=== PATIENT | female | born 1965 | race Caucasian/White ===

== ENCOUNTER 2022-04-01 16:38 | Emergency (ER) | payer MEDICAID, SELFPAY ==
[2022-04-01 16:55] VITALS: BP 158/117; PULSE 92; RESP 22; O2SAT 91; BMI 49.7
--- NOTE | 2022-04-01 17:16 | ECG_ITS ---
[facility] Test Date: 2022-04-01 Pat Name: Dennis Quintero Department: Room: Gender: Female [employer] Controller: : [id number] Requested By: Otoniel Monzon Order Number: [id number] Javi MD: Donaldo Riggs M.D. Measurements Intervals [place] Rate: 84 P: 60 NH: 201 QRS: -39 QRSD: 102 T: 93 QT: 395 QTc: 469 Interpretive Statements SINUS RHYTHM POSSIBLE LEFT ATRIAL ENLARGEMENT [-0.1mV P-WAVE IN V1/V2] LEFT AXIS DEVIATION [QRS AXIS < -30] SEPTAL MYOCARDIAL INFARCTION , PROBABLY OLD [40+ ms Q WAVE IN V1/V2] MODERATE T-WAVE ABNORMALITY, CONSIDER LATERAL ISCHEMIA [-0.1+ mV T-WAVE IN I/aVL/V5/V6] No previous ECG available for comparison Electronically Signed On 04-02-2022 8:04:22 CDT by Donaldo Riggs M.D. [id number]
--- NOTE | 2022-04-01 17:16 | XRR_ITS ---
PROCEDURE INFORMATION: Exam: XR Chest Exam date and time: 04/01/2022 5:41 PM Age: 56 years old Clinical indication: Shortness of breath; Additional info: SOB TECHNIQUE: Imaging protocol: XR of the chest. Views: 1 view. COMPARISON: No relevant prior studies available. FINDINGS: Lungs: Right hilar to lower lobe atelectasis versus infiltrate. Pleural spaces: Unremarkable. No pleural effusion. No pneumothorax. Heart/Mediastinum: Cardiomegaly. Bones/joints: Unremarkable. XR/XR chest 1V portable [id number] IMPRESSION: 1. Cardiomegaly. 2. Right hilar to lower lobe atelectasis versus infiltrate.
--- NOTE | 2022-04-01 17:17 | ED_ITS ---
HPI - Weakness General: Chief complaint: Weakness Stated complaint: WEAKNESS; SOB Time Seen by Provider: 04/01/22 16:44 Source: patient and EMS Mode of arrival: EMS Limitations: no limitations History of Present Illness: History is obtained from the patient in a limited fashion as well as EMS. This patient has history of COPD. She also has a history of diabetes. She apparently is moved here from [place] has been spending time with family. She is not received care at this location. She was transported because she is allegedly have been more short of breath, claims to be out of much of her medications to include her inhalation therapy equipment etc. and is felt weak. She denies any known fevers or chills. She denies any nausea vomiting or diarrhea. She currently denies chest pain. She states she is immunized against COVID-19 and has not had COVID in the last 2 years. MD Complaint: generalized weakness Associated symptoms: Reports short of breath; Denies chest pain, chills, dysuria, fever(s), headache(s), nausea or vomiting Review of Systems Const: Reports: fatigue; Denies: fever(s), chills or body aches Eyes: Denies: change in vision ENMT: Denies: throat pain or odynophagia Card: Denies: chest pain, palpitations, irregular heart rhythm or edema Resp: Reports: dyspnea, non-productive cough and wheezing GI: Denies: abdominal pain, nausea or vomiting : Denies: flank pain, difficulty voiding or dysuria Musc: Reports: extremity pain (Chronic lower leg pain); Denies: neck pain, back pain or extremity swelling Skin/Breast: Denies: rash, pruritus or erythema Neuro: Denies: headache(s), numbness in extremities or weakness in extremities Endo: Denies: polyuria or polydipsia Physical Exam Narrative: EXAM NARRATIVE: Patient makes good eye contact appears to be alert and she does answer questions in appropriate fashion. Some of her answers seem to be less than forthcoming at times. Const: COMMON NORMALS: no acute distress and patient oriented x3 GENERAL APPEARANCE: cooperative NUTRITIONAL APPEARANCE: overweight HENMT: COMMON NORMALS: normocephalic, atraumatic, Normal nasal mucous membranes and turbinates present and moist oral mucous membranes HEAD & SCALP: normocephalic and atraumatic NOSE: Normal nasal mucous membranes and turbinates present Eye: COMMON NORMALS: Equal, round and reactive pupils present, EOMs intact bilaterally, conjunctivae normal and no scleral icterus CONJUNCTIVA: Yes conjunctivae normal PUPIL: Yes Equal, round and reactive pupils present Neck/C-Spine: COMMON NORMALS: full ROM, no lymphadenopathy, no JVD and No carotid bruits Chest: COMMONS NORMALS: normal inspection of the chest Resp: COMMON NORMALS: No retractions and No use of accessory muscles EFFORT & INSPECTION: Yes able to speak in complete sentences AUSCULTATION: crackles and no wheezes Cardio: COMMON NORMALS: no JVD, regular rate, regular rhythm, No murmurs present (Cardio) and Peripheral pulses 2+ throughout RATE: regular rate RHYTHM: regular rhythm PERIPHERAL PULSES: Peripheral pulses 2+ throughout GI: COMMON NORMALS: Normal to inspection, nondistended, normoactive bowel sounds present and Soft to palpation PALPATION: Yes Soft to palpation : COMMON NORMALS: Yes no CVA tenderness BLADDER/KIDNEY EXAM: Yes no CVA tenderness Back/Pelvis: COMMON NORMALS: no CVA tenderness, thoracic and lumbar spine normal to inspection, no thoracic nor lumbar tenderness and thoraco-lumbar ROM normal Extremity: COMMON NORMALS: normal to inspection, full ROM, capillary refill normal, no joint enlargement, no calf tenderness and no pedal edema Neuro: COMMON NORMALS: patient oriented x3, moves all extremities, no focal m otor deficits and no sensory deficits noted CRANIAL NERVES: Yes CN normal except as noted Psych: COMMON NORMALS: mental status grossly normal Skin: COMMON NORMALS: no rashes or lesions noted, no wounds and turgor normal GENERAL SKIN EXAM: no rashes or lesions noted and turgor normal Course Reevaluation(s): Reevaluation #1: Patient subjectively states she feels much better. She is breathing easy without any respiratory distress. Repeat auscultation reveals no wheezes and significantly decreased crackles. No other new or focal findings. I questioned her about her family members who continue to call the ED. She states that they are probably just checking on her. I did ask her that if any of them had healthcare DURABLE POWER OF DIRECTOR OF MATERIALS or proxy for her health care. She stated that they did not and that she was the responsible alliance party for all her healthcare decisions. Time: 20:57 Vital Signs: Vital signs: Vital Signs Pulse Rate 83 04/01/22 17:32 Respiratory Rate 18 04/01/22 17:32 Blood Pressure 158/117 04/01/22 16:55 Pulse Oximetry 97 04/01/22 17:32 MDM - Weakness Medical Decision Making Patient's current clinical picture is nonspecific. She does have cardiomegaly and suggestion of a possible developing infiltrate on the right lower lobe. This is consistent with her clinical picture of possible pulmonary infection. Certainly does not suggest congestive heart failure clinically. He is not having any ongoing chest pain symptoms arrhythmias etc. I think her risk of other cardiovascular etiology to her current presentation is relatively low. Most of her issues are probably related to her lack of medications. She does have an elevation of blood sugar but CO2 level is normal and she has normal mentation and she freely admits that she has not taken her metformin so I do not think any acute intervention other than restarting her metformin is appropriate at this time. She is out of her lisinopril and other meds so will will give her 30 days rx. We will go ahead and refill her medications, start her on a course of doxycycline and advised her to seek follow-up this coming week or return to the emergency department for any persistent or worsening symptoms. She acknowledged our discussion and was appreciative of care. Stable for discharge at this time. Lab Data I reviewed the patient's lab results. : 04/01/22 18:22 04/01/22 19:45 Radiology Impressions Chest X-Ray 04/01/22 17:16 IMPRESSION: 1. Cardiomegaly. 2. Right hilar to lower lobe atelectasis versus infiltrate. Laboratory Results WBC 9.7 10^3/uL (4.0-10.0) 04/01/22 18: RBC 5.99 10^6/uL (4.1-5.3) H 04/01/22 18:22 Hgb 17.6 g/dL (11.5-15.3) H 04/01/22 18: Hct 54.2 % (37.0-47.0) H 04/01/22 18: MCV 90.5 fl (81-99) 04/01/22 18:22 MCH 29.4 pg (28.0-34.0) 04/01/22 18: MCHC 32.5 g/dL (30.0-36.0) 04/01/22 18:22 RDW 13.8 % (12.1-15.1) 04/01/22 18: Plt Count 185 10^3/cmm (130-400) 04/01/22 18: MPV 11.3 fL (7.4-10.4) H 04/01/22 18: Neut % (Auto) 62.5 % 04/01/22 18: Lymph % (Auto) 30.7 % 04/01/22 18: Dickey % (Auto) 4.1 % 04/01/22 18: Eos % (Auto) 1.7 % 04/01/22 18: Baso % (Auto) 0.6 % 04/01/22: Neut # (Auto) 6.03 10^3/uL (1.8-7.7) 04/01/22: Lymph # (Auto) 3.0 10^3/uL (0.8-4.8) 04/01/22 18: Dickey # (Auto) 0.4 10^3/uL (0.2-0.9) 04/01/22 18: Eos # (Auto) 0.2 10^3/uL (0.0-0.8) 04/01/22: Baso # (Auto) 0.1 10^3/uL (0.0-0.1) 04/01/22 18: Nucleated RBC % (auto) 0 % 04/01/22 18: Nucleated RBCs # 0.0 /100WBC 04/01/22 18: Sodium 130 mmol/L (136-145) L 04/01/22 19:45 Potassium 4.0 mmol/L (3.5-5.1) 04/01/22 19:45 Chloride 91 mmol/L (98-107) L 04/01/22 19:45 Carbon Dioxide 27 mmol/L (22-29) 04/01/22 19:45 Anion Gap 16.0 (5-19) 04/01/22 19:45 BUN 9 mg/dL (6-20) 04/01/22 19:45 Creatinine 0.6 mg/dL (0.5-0.9) 04/01/22 19:45 GFR Calculation 103.0 mL/min (90-130) 04/01/22 19:45 Glucose 411 mg/dL (65-115) H 04/01/22 19:45 Calculated Osmolality 286 mOsm/kg (285-295) 04/01/22 19:45 Calcium 8.4 mg/dL (8.5-10.5) L 04/01/22 19:45 Total Bilirubin 0.4 mg/dL (0.15-1.2) 04/01/22 19:45 AST 13 U/L (0-32) 04/01/22 19:45 ALT 10 U/L (0-33) 04/01/22 19:45 Alkaline Phosphatase 85 IU/L (35-105) 04/01/22 19:45 NT-Pro-B Natriuret Pep 739 pg/mL (0-125) H 04/01/22 19:45 Total Protein 6.8 g/dL (6.6-8.7) 04/01/22 19:45 Albumin 3.9 g/dL (3.5-5.2) 04/01/22 19:45 Globulin 2.9 g/dL (1.3-4.6) 04/01/22 19:45 EKG Data EKG 1: I personally reviewed and interpreted this EKG as follows: EKG interpretation time: 21:02 Interpretation: Her EKG reveals a sinus rhythm of 84 bpm. She does have evidence of left atrial enlargement. She has normal intervals to include RI interval QTc interval. She has normal QRS duration. 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 She has poor R wave progression anterior precordial leads. She has some nonspecific ST-T wave changes in V5 and V6. No prior tracing available for comparison Discharge Plan Discharge Patient Disposition: Home Clinical Impression: Diabetes mellitus, Acute bronchitis, COPD (chronic obstructive pulmonary disease) Condition: Stable Prescriptions: New albuterol sulfate 90 mcg/actuation HFA aerosol inhaler 2 inh inhalation Q6H PRN (Reason: shortness of breath or wheezing) Qty: 8.5 0RF lisinopril 20 mg tablet 20 mg PO DAILY Qty: 30 0RF trazodone 50 mg tablet 50 mg PO BEDTIME Qty: 30 0RF gabapentin 300 mg capsule 300 mg PO BID Qty: 60 0RF doxycycline hyclate 100 mg capsule 100 mg PO BID 10 Days Qty: 20 0RF Discharge Orders: Discharge ED (Routine); Ordered 04/01/22 Ordered By: Otoniel Monzon Discharge Diet: Diabetic Discharge Activity: Increase activity as tolerated and Oxygen as instructed Patient Instructions: Opioid Safety Activity Restrictions/Additional Instructions: Make sure that you fill the prescriptions and and take your routine medications as prescribed. We have also provided you an inhaler as well as a apparatus to use your nebulizer for your breathing treatments. Also provided a 10-day antibiotic course. Call to arrange a follow-up appointment within the next 7 to 10 days. If your symptoms persist worsen or new symptoms develop return to this or the nearest emergency department for reevaluation. Coding Level of Care Code ED Meat Stringer for Ana Fwjustin Exam Comprehensive
[2022-04-01] MEDS: ipratropium-albuterol 3 mL Neb INHALATION (17:31)
[2022-04-01 17:32] VITALS: PULSE 83; RESP 18; O2SAT 97
[2022-04-01 18:30] LABS: Basophils # 0.1 10^3/uL (0.0-0.1); Basophils % 0.6 %; Eosinophils # 0.2 10^3/uL (0.0-0.8); Eosinophils % 1.7 %; Hematocrit 54.2 % (37.0-47.0); Hemoglobin 17.6 g/dL (11.5-15.3); Lymphocytes % 30.7 %; Mean Corpuscular HGB Conc 32.5 g/dL (30.0-36.0); Mean Corpuscular Hemoglobin 29.4 pg (28.0-34.0); Mean Corpuscular Volume 90.5 fl (81-99); Mean Platelet Volume 11.3 fL (7.4-10.4); Monocytes # 0.4 10^3/uL (0.2-0.9); Monocytes % 4.1 %; Neutrophils # 6.03 10^3/uL (1.8-7.7); Neutrophils % 62.5 %; Nucleated Red Blood Cells % 0 %; Platelet Count 185 10^3/cmm (130-400); Red Blood Count 5.99 10^6/uL (4.1-5.3); Red Cell Distribution Width 13.8 % (12.1-15.1); White Blood Count 9.7 10^3/uL (4.0-10.0)
[2022-04-01 20:21] LABS: Alanine Aminotransferase 10 U/L (0-33); Albumin Level 3.9 g/dL (3.5-5.2); Alkaline Phosphatase 85 IU/L (35-105); Aspartate Amino Transferase 13 U/L (0-32); Blood Urea Nitrogen 9 mg/dL (6-20); Calcium 8.4 mg/dL (8.5-10.5); Carbon Dioxide 27 mmol/L (22-29); Chloride 91 mmol/L (98-107); Globulin 2.9 g/dL (1.3-4.6); Glucose 411 mg/dL (65-115); NT Pro B Type Natriuretic Pept 739 pg/mL (0-125); Osmolality Calculated 286 mOsm/kg (285-295); Sodium 130 mmol/L (136-145); Total Bilirubin 0.4 mg/dL (0.15-1.2); Total Protein 6.8 g/dL (6.6-8.7)
== END 2022-04-01 21:31 | disposition home or self-care (01) ==
PROVIDERS: Emergency Provider Emergency Medicine
DX: J44.0 Chronic obstructive pulmonary disease with (acute) lower respiratory infection (principal); J20.9 Acute bronchitis, unspecified; E11.9 Type 2 diabetes mellitus without complications; Z76.0 Encounter for issue of repeat prescription; Z79.899 Other long term (current) drug therapy
CPT/HCPCS: 36415; 71045; 80053; 83880; 85025; 93005; 94640; 96374; 99284; J2930